=== PATIENT | female | born 1985 | race Caucasian/White ===

== ENCOUNTER 2017-01-17 17:17 | Emergency (ER) | payer SELFPAY ==
[2017-01-17] MEDS ORDERED: IBUPROFEN 600 MG TAB PO STA (17:34)
--- NOTE | 2017-01-17 17:36 | ED ---
Fall HPI - General Stated Complaint: right hand injury Time Seen by Provider: 01/17/17 17:32 Source: patient, RN notes reviewed Limitations: no limitations - History of Present Illness Initial Comments: This a 31-year-old female presents emergency Department chief complaint right hand injury. Patient states she tripped and fell. Patient has multiple abrasions to bilateral hands, arms. Patient is right-hand dominant. Patient complains of primarily right hand pain. She states she has some abrasions to her left hand but has no sniffing pain. Denies any head injury, LOC. Patient states she has no other muscle skeletal injury other than her right hand. She states that her fingers 2 through 5 bent back. She has severe pain to her right hand. Patient denies any wrist pain. - Related Data Home Medications Medication Instructions Recorded Confirmed Morphine Sulfate [Elayne] 30 mg PO BID 10/27/15 10/27/15 traMADol HCl [Ultram] 50 mg PO BID 10/27/15 10/27/15 Previous Rx's Medication Instructions Recorded HYDROcodone/APAP 5-325MG [[place] 1 each PO Q6HR PRN #20 tab 10/27/15 5-325] HYDROcodone/APAP 10-325MG [[place] 1 tab PO Q6H PRN #15 tab 01/17/17 10-325] Allergies Allergy/AdvReac Type Severity Reaction Status Date / Time No Known Allergies Allergy Verified 01/17/17 17:39 Review of Systems ROS Statement: Those systems with pertinent positive or pertinent negative responses have been documented in the HPI. ROS Other: All systems not noted in ROS Statement are negative. Past Medical History Past Medical History: Fibromyalgia History of Any Multi-Drug Resistant Organisms: None Reported Past Surgical History: Orthopedic Surgery, Tubal Ligation Additional Past Surgical History / Comment(s): rt rotator cuff Past Psychological History: No Psychological Hx Reported Smoking Status: Current every day smoker Past Alcohol Use History: None Reported Past Drug Use History: None Reported General Exam General appearance: alert, in no apparent distress Head exam: Present: atraumatic, normocephalic, normal inspection Neck exam: Present: normal inspection, full ROM. Absent: tenderness, meningismus, lymphadenopathy Respiratory exam: Present: normal lung sounds bilaterally. Absent: respiratory distress, wheezes, rales, rhonchi, stridor Cardiovascular Exam: Present: regular rate, normal rhythm, normal heart sounds. Absent: systolic murmur, diastolic murmur, rubs, gallop, clicks Extremities exam: Present: other (Bilateral hands, arms or multiple abrasions no active bleeding. Patient has tenderness with palpation across 2 through 5 metacarpal, MCP region there is moderate swelling patient has no wrist tenderness no forearm tenderness. Remaining extremity exam within normal limits.) Back exam: Present: full ROM. Absent: tenderness Neurological exam: Present: alert, oriented X3, CN II-XII intact Skin exam: Present: warm, dry Course Vital Signs 01/17/17 17:46 Temperature 97.9 F Pulse Rate 83 Respiratory 18 Rate Blood Pressure 125/74 O2 Sat by Pulse 100 Oximetry Procedures - Orthopedic Splinting/Casting Injury #1 Side: right Upper Extremity Injury Location: hand, finger Upper Extremity Immobilizer: ulnar gutter (Neurovascular intact before and after procedure) Medical Decision Making - Medical Decision Making 31-year-old female presents to emergency room for fall, head injury. Patient has proximal fifth digit fracture. Patient does have some tenderness over the MCPs joint. Patient was placed in ulnar gutter splint. Patient discharged with pain medication. Patient will follow-up with on-call orthopedics Dr. Kong. Return parameters were discussed. Disposition Clinical Impression: Hand injury, Finger fracture, right, Multiple abrasions Disposition: HOME SELF-CARE Condition: Stable Instructions: Finger Fracture (ED) Additional Instructions: Please return to the Emergency Department if symptoms worsen or any other concerns. Prescriptions: HYDROcodone/APAP 10-325MG [[place] 10-325] 1 tab PO Q6H PRN #15 tab PRN Reason: pain Referrals: Maco Dhillon DO [Primary Care Provider] - 1-2 days Patrick Kong DO [Doctor of Osteopathic Medicine] - 1-2 days Time of Disposition: 17:56
[2017-01-17 17:50] VITALS: BP 125/74; PULSE 83; RESP 18; TEMP 97.9
--- NOTE | 2017-01-17 17:58 | XR ---
EXAMINATION TYPE: XR hand complete RT DATE OF EXAM: 01/17/2017 5:48 PM COMPARISON: NONE HISTORY: Fifth digit pain TECHNIQUE: 4 views FINDINGS: There is a transverse fracture across the base of the proximal phalanx of the little finger of the right hand. There is no dislocation. Joint spaces are normal. IMPRESSION: Acute fracture of the little finger as above. No significant displacement.
== END 2017-01-17 18:32 | disposition home or self-care (01) ==
LOC: EC 17:17
DX: S62.616A Displaced fracture of proximal phalanx of right little finger, initial encounter for closed fracture (principal); S60.512A Abrasion of left hand, initial encounter; S60.511A Abrasion of right hand, initial encounter; S40.812A Abrasion of left upper arm, initial encounter; S40.811A Abrasion of right upper arm, initial encounter; F17.200 Nicotine dependence, unspecified, uncomplicated; M79.7 Fibromyalgia; Z79.891 Long term (current) use of opiate analgesic; Z79.899 Other long term (current) drug therapy; W01.0XXA Fall on same level from slipping, tripping and stumbling without subsequent striking against object, initial encounter
CPT/HCPCS: 29125; 99283

== ENCOUNTER 2017-05-24 19:35 | Emergency (ER) | payer OTHER ==
[2017-05-24] MEDS ORDERED: DICYCLOMINE 10 MG/ML 2 ML AMP IM STA (21:23)
[2017-05-24] MEDS ORDERED: SODIUM CHLORIDE 0.9% 1,000 ML IV ONE (21:23)
[2017-05-24] MEDS ORDERED: ONDANSETRON 4 MG/2 ML VIAL IVP STA (21:23)
--- NOTE | 2017-05-24 21:38 | ED ---
General Adult HPI - General Chief complaint: Abdominal Pain Stated complaint: Vomiting Time Seen by Provider: 05/24/17 21:05 Source: patient Mode of arrival: ambulatory Limitations: no limitations - History of Present Illness Initial comments: This is a 31-year-old female with a history of headaches please see a neurologist, Dr. Haywood, who presents emergency department for multiple complaints. She states that for the last 2 weeks she's been having bitemporal headaches that she states the been constant. She says associated nausea, vomiting, and diarrhea. She is also had left-sided abdominal cramping that comes and goes. Nothing seems to make anything better or worse. She tried over -the-counter remedies without any relief. She has not followed up with her primary doctor. She no longer sees Dr. Haywood however states that when she saw him previously she was told that she had spots on her brain. This was of unclear etiology at the time however she has not seen anybody for them in a long time. She presented emergency Department after going to [facility] for further evaluation. She denies any vision changes, focal neurologic deficits, or any other complaints. - Related Data Home Medications Medication Instructions Recorded Confirmed Acetaminophen [Tylenol Arthritis] 1,950 mg PO DAILY PRN 05/24/17 05/24/17 Previous Rx's Medication Instructions Recorded Butalb/APAP/Caff 50-325-40Mg 1 tab PO Q4H PRN #20 tablet 05/24/17 [Fioricet 50-325-40] Ondansetron Odt [Zofran Odt] 4 mg PO Q8HR PRN #15 tab 05/24/17 Allergies Allergy/AdvReac Type Severity Reaction Status Date / Time No Known Allergies Allergy Verified 05/24/17 21:49 Review of Systems ROS Statement: Those systems with pertinent positive or pertinent negative responses have been documented in the HPI. ROS Other: All systems not noted in ROS Statement are negative. Past Medical History Past Medical History: Fibromyalgia History of Any Multi-Drug Resistant Organisms: None Reported Past Surgical History: Orthopedic Surgery, Tubal Ligation Additional Past Surgical History / Comment(s): rt rotator cuff Past Psychological History: No Psychological Hx Reported Smoking Status: Current every day smoker Past Alcohol Use History: Occasional Past Drug Use History: None Reported General Exam - General Exam Comments Initial Comments: Constitutional: Awake alert Appears comfortable Head: Normocephalic atraumatic Eyes: no conjunctival injection No scleral icterus EOMI, pupils are 4 mm reactive bilaterally Neck: No JVD Supple, no midline tenderness, no meningismus Heart: Regular rate rhythm normal S1-S2 no murmurs Lungs: Clear to auscultation bilaterally No wheezing No rales Abdomen: Soft nondistended nontender Extremities: Non edematous DP pulses intact Radial pulses intact Neuro: A&Ox3 cranial nerves II through XII are grossly intact, 5 out of 5 strength in upper and lower [place] bilaterally, sensation intact to light touch in all extremities, no ataxia with finger to nose and heel to aguiar testing No focal neurologic deficits Psych: Appropriate mood and affect Limitations: no limitations Course Vital Signs 05/24/17 05/24/17 05/24/17 19:53 22:04 23:41 Temperature 98.6 F 98.6 F Pulse Rate 82 70 71 Respiratory 18 18 17 Rate Blood Pressure 109/64 115/68 96/59 O2 Sat by Pulse 100 98 100 Oximetry 05/25/17 00:14 Temperature 97.9 F Pulse Rate 72 Respiratory 18 Rate Blood Pressure 112/58 O2 Sat by Pulse 97 Oximetry Medical Decision Making - Medical Decision Making This is a 31-year-old female presents emergency room for 2 weeks worth of headache. Labwork was reviewed and unremarkable. She does not appear to be severely dehydrated. No obvious evidence for infection. CT did show a low- lying cerebellar tonsils of unclear etiology or significance. The patient was more comfortable after medications in the emergency department. At this time I feel she needs to follow-up with her primary doctor possibly neurology. She can return if she has worsening or changing symptoms or questions were answered. - Lab Data Result diagrams: 05/24/17 22:00 05/24/17 22:00 Lab Results 05/24/17 05/24/17 05/24/17 Range/Units 22:00 22:00 22:00 WBC 9.5 (3.8-10.6) k/uL RBC 4.55 (3.80-5.40) m/uL Hgb 13.4 (11.4-16.0) gm/dL Hct 41.6 (34.0-46.0) % MCV 91.5 (80.0-100.0) fL MCH 29.4 (25.0-35.0) pg MCHC 32.1 (31.0-37.0) g/dL RDW 12.8 (11.5-15.5) % Plt Count 304 (150-450) k/uL Neutrophils % 52 % Lymphocytes % 37 % Monocytes % 4 % Eosinophils % 4 % Basophils % 1 % Neutrophils # 5.0 (1.3-7.7) k/uL Lymphocytes # 3.6 (1.0-4.8) k/uL Monocytes # 0.4 (0-1.0) k/uL Eosinophils # 0.4 (0-0.7) k/uL Basophils # 0.1 (0-0.2) k/uL Sodium 139 (137-145) mmol/L Potassium 4.1 (3.5-5.1) mmol/L Chloride 107 (98-107) mmol/L Carbon Dioxide 24 (22-30) mmol/L Anion Gap 8 mmol/L BUN 5 L (7-17) mg/dL Creatinine 0.59 (0.52-1.04) mg/dL Est GFR (MDRD) Af Amer >60 (>60 ml/min/1.73 sqM) Est GFR (MDRD) Non-Af >60 (>60 ml/min/1.73 sqM) Glucose 81 (74-99) mg/dL Calcium 9.1 (8.4-10.2) mg/dL Total Bilirubin 0.1 L (0.2-1.3) mg/dL AST 17 (14-36) U/L ALT 25 (9-52) U/L Alkaline Phosphatase 82 (38-126) U/L Total Protein 6.6 (6.3-8.2) g/dL Albumin 4.1 (3.5-5.0) g/dL Amylase <30 L (30-110) U/L Lipase 30 (23-300) U/L Urine Color Light Yellow Urine Appearance Clear (Clear) Urine pH 5.5 (5.0-8.0) Ur Specific [place] 1.007 (1.001-1.035) Urine Protein Negative (Negative) Urine Glucose (UA) Negative (Negative) Urine Ketones Negative (Negative) Urine Blood Small H (Negative) Urine Nitrite Negative (Negative) Urine Bilirubin Negative (Negative) Urine Urobilinogen <2.0 (<2.0) mg/dL Ur Leukocyte Esterase Negative (Negative) Urine RBC 2 (0-5) /hpf Urine WBC 1 (0-5) /hpf Ur Squamous Epith Cells <1 (0-4) /hpf Urine Bacteria Rare H (None) /hpf Urine HCG, Qual (Not Detectd) Urine Opiates Screen Detected H (NotDetected) Ur Oxycodone Screen Detected H (NotDetected) Urine Methadone Screen Not Detected (NotDetected) Ur Propoxyphene Screen Not Detected (NotDetected) Ur Barbiturates Screen Not Detected (NotDetected) U Tricyclic Antidepress Not Detected (NotDetected) Ur Phencyclidine Scrn Not Detected (NotDetected) Ur Amphetamines Screen Not Detected (NotDetected) U Methamphetamines Scrn Not Detected (NotDetected) U Benzodiazepines Scrn Not Detected (NotDetected) Urine Cocaine Screen Not Detected (NotDetected) U Marijuana (THC) Screen Not Detected (NotDetected) 05/24/17 Range/Units 22:00 WBC (3.8-10.6) k/uL RBC (3.80-5.40) m/uL Hgb (11.4-16.0) gm/dL Hct (34.0-46.0) % MCV (80.0-100.0) fL MCH (25.0-35.0) pg MCHC (31.0-37.0) g/dL RDW (11.5-15.5) % Plt Count (150-450) k/uL Neutrophils % % Lymphocytes % % Monocytes % % Eosinophils % % Basophils % % Neutrophils # (1.3-7.7) k/uL Lymphocytes # (1.0-4.8) k/uL Monocytes # (0-1.0) k/uL Eosinophils # (0-0.7) k/uL Basophils # (0-0.2) k/uL Sodium (137-145) mmol/L Potassium (3.5-5.1) mmol/L Chloride (98-107) mmol/L Carbon Dioxide (22-30) mmol/L Anion Gap mmol/L BUN (7-17) mg/dL Creatinine (0.52-1.04) mg/dL Est GFR (MDRD) Af Amer (>60 ml/min/1.73 sqM) Est GFR (MDRD) Non-Af (>60 ml/min/1.73 sqM) Glucose (74-99) mg/dL Calcium (8.4-10.2) mg/dL Total Bilirubin (0.2-1.3) mg/dL AST (14-36) U/L ALT (9-52) U/L Alkaline Phosphatase (38-126) U/L Total Protein (6.3-8.2) g/dL Albumin (3.5-5.0) g/dL Amylase (30-110) U/L Lipase (23-300) U/L Urine Color Urine Appearance (Clear) Urine pH (5.0-8.0) Ur Specific [place] (1.001-1.035) Urine Protein (Negative) Urine Glucose (UA) (Negative) Urine Ketones (Negative) Urine Blood (Negative) Urine Nitrite (Negative) Urine Bilirubin (Negative) Urine Urobilinogen (<2.0) mg/dL Ur Leukocyte Esterase (Negative) Urine RBC (0-5) /hpf Urine WBC (0-5) /hpf Ur Squamous Epith Cells (0-4) /hpf Urine Bacteria (None) /hpf Urine HCG, Qual Not Detected (Not Detectd) Urine Opiates Screen (NotDetected) Ur Oxycodone Screen (NotDetected) Urine Methadone Screen (NotDetected) Ur Propoxyphene Screen (NotDetected) Ur Barbiturates Screen (NotDetected) U Tricyclic Antidepress (NotDetected) Ur Phencyclidine Scrn (NotDetected) Ur Amphetamines Screen (NotDetected) U Methamphetamines Scrn (NotDetected) U Benzodiazepines Scrn (NotDetected) Urine Cocaine Screen (NotDetected) U Marijuana (THC) Screen (NotDetected) Disposition Clinical Impression: Headache Disposition: HOME SELF-CARE Condition: Stable Instructions: Acute Headache (ED) Prescriptions: Butalb/APAP/Caff 50-325-40Mg [Fioricet 50-325-40] 1 tab PO Q4H PRN #20 tablet PRN Reason: Headache Ondansetron Odt [Zofran Odt] 4 mg PO Q8HR PRN #15 tab PRN Reason: Nausea Referrals: Maco Dhillon DO [Primary Care Provider] - 1-2 days
[2017-05-24 22:11] LABS: Basophils # (A) 0.1 k/uL (0-0.2); Basophils % (A) 1 %; CH 30.5; CHCM 33.5; Eosinophils # (A) 0.4 k/uL (0-0.7); Eosinophils % (A) 4 %; HCT 41.6 % (34.0-46.0); HDW 2.35; HGB 13.4 gm/dL (11.4-16.0); Luc # (Auto) 0.18; Luc % (Auto) 2; Lymphocytes # (A) 3.6 k/uL (1.0-4.8); Lymphocytes % (A) 37 %; MCH 29.4 pg (25.0-35.0); MCHC 32.1 g/dL (31.0-37.0); MCV 91.5 fL (80.0-100.0); Mean Platelet Volume 8.1; Monocytes # (A) 0.4 k/uL (0-1.0); Monocytes % (A) 4 %; Neutrophils % (A) 52 %; RBC 4.55 m/uL (3.80-5.40); RDW 12.8 % (11.5-15.5); WBC 9.5 k/uL (3.8-10.6); WBC (Perox) 10.11
[2017-05-24 22:16] LABS: Appearance,Urine Clear (Clear); Bacteria,Urine Rare /hpf; Bilirubin,Urine Negative (Negative); Glucose,Urine (UA) Negative (Negative); Ketones,Urine Negative (Negative); Leukocyte Esterase,Urine Negative (Negative); Nitrite,Urine Negative (Negative); PH, Urine 5.5 (5.0-8.0); Particle Count 500; Protein,Urine Negative (Negative); RBC,Urine 2 /hpf (0-5); Specific Gravity,Urine 1.007 (1.001-1.035); Squamous Epithelial Cell,Urine <1 /hpf (0-4); UA Billing (MACRO vs. MICRO) MICRO; Urobilinogen,Urine <2.0 mg/dL (<2.0); WBC,Urine 1 /hpf (0-5)
[2017-05-24 22:20] LABS: AST 17 U/L (14-36); Alkaline Phosphatase 82 U/L (38-126); Amylase <30 U/L (30-110); Anion Gap 8 mmol/L; Blood Urea Nitrogen 5 mg/dL (7-17); Calcium 9.1 mg/dL (8.4-10.2); Carbon Dioxide 24 mmol/L (22-30); Chloride 107 mmol/L (98-107); Glucose 81 mg/dL (74-99); Non-African American GFR(MDRD) >60 (>60 ml/min/1.73 sqM); Potassium 4.1 mmol/L (3.5-5.1); Sodium 139 mmol/L (137-145); Total Bilirubin 0.1 mg/dL (0.2-1.3); Total Protein 6.6 g/dL (6.3-8.2)
[2017-05-24 22:26] LABS: ALT 25 U/L (9-52)
[2017-05-24] MEDS ORDERED: KETOROLAC 30 MG/ML 1 ML VIAL IVP STA (23:05)
--- NOTE | 2017-05-24 23:52 | CT ---
EXAM: CT Head Without Intravenous Contrast CLINICAL HISTORY: Headache x2 weeks TECHNIQUE: Axial computed tomography images of the head/brain without intravenous contrast. CTDIvol: 60.3 mGy DLP: 955 mGy-cm. This CT exam was performed using one or more of the following dose reduction techniques: automated exposure control, adjustment of the mA and/or kV according to patient size, and/or use of iterative reconstruction technique. COMPARISON: No relevant prior studies available. FINDINGS: The posterior fossa is not well evaluated. No definite evidence for acute intracranial hemorrhage or hydrocephalus. The cerebellar tonsils are low- lying. No evidence for a depressed calvarial fracture. The visualized portions of the bilateral mastoid air cells are clear. The visualized portions of the paranasal sinuses are essentially clear without air fluid levels. IMPRESSION: 1. No definite evidence for acute intracranial hemorrhage or hydrocephalus. If symptoms persist or worsen, MRI of the brain is suggested. 2. The cerebellar tonsils are low-lying which may also be better evaluated by dedicated MRI brain..
[2017-05-25 00:15] VITALS: BP 112/58; PULSE 72; RESP 18; TEMP 97.9
== END 2017-05-25 00:13 | disposition home or self-care (01) ==
LOC: EC 19:35
DX: R51 Headache (principal); R11.2 Nausea with vomiting, unspecified; R19.7 Diarrhea, unspecified; R10.9 Unspecified abdominal pain; R93.0 Abnormal findings on diagnostic imaging of skull and head, not elsewhere classified; F17.200 Nicotine dependence, unspecified, uncomplicated
CPT/HCPCS: 99284; 96374; 96375; 96372; 36415; 80053; 82150; 83690; 85025; 81001; 81025; 80306; 70450; J0500; J2405; J1885

== ENCOUNTER → 2017-05-29 | Outpatient (CLI) | payer OTHER ==
--- NOTE | 2017-05-29 23:23 | MR ---
EXAMINATION TYPE: MR brain wo/w con DATE OF EXAM: 05/29/2017 COMPARISON: 04/02/2012 HISTORY: Headaches, Dizzy, Multihance 20, Previous MRI on PACS TECHNIQUE: Multiplanar, multisequence images of the brain and brainstem is performed without and with IV contras t, utilizing 20 mL intravenous MultiHance . FINDINGS: Ventricles and sulci appear normal. There is no mass effect nor midline shift. There is no sign of intracranial hemorrhage. Brainstem is intact. There is no evidence of an infarct. There is no pathologic enhancement. Corpus callosum appears normal. Sella turcica is normal. Pituitary stalk is in the midline. Optic chiasm appears normal. There is no evidence of posterior fossa mass. IMPRESSION: Normal MR scan of the brain. No change compared to old exam.
== END | disposition home or self-care (01) ==
LOC: RADMRIMAIN 18:52
PROVIDERS: ATTEND Internal Medicine
DX: R51 Headache (principal); R42 Dizziness and giddiness
CPT/HCPCS: 70553; A9577

== ENCOUNTER → 2017-06-07 | Outpatient (CLI) | payer OTHER ==
--- NOTE | 2017-06-07 07:48 | US ---
EXAMINATION TYPE: US abdomen complete DATE OF EXAM: 06/07/2017 COMPARISON: NONE CLINICAL HISTORY: Left Upper Abdomen Pain R10.12. Pt states left side ABD pain EXAM MEASUREMENTS: Liver Length: 16.3 cm Gallbladder Wall: 0.2 cm CBD: 0.3 cm Spleen: 12.0 cm Right Kidney: 11.5 x 3.9 x 5.2 cm Left Kidney: 11.8 x 5.0 x 4.0 cm Pancreas: wnl, tail obscured by overlying bowel gas Liver: wnl Gallbladder: wnl Evidence for sonographic Bejarano's sign: No CBD: wnl Spleen: wnl Right Kidney: wnl Left Kidney: wnl Upper IVC: wnl Abd Aorta: wnl The liver is homogenous. The intrahepatic portion of the IVC and proximal abdominal aorta are within normal limits. There is no evidence of cholelithiasis. Common bile duct is unremarkable. The visu alized portions of the pancreas are homogenous. The spleen is unremarkable. Kidneys are symmetric a nd free of hydronephrosis. No renal lesions are seen. IMPRESSION: 1. No sonographic evidence for cholelithiasis or cholecystitis. 2. Unremarkable abdominal ultrasound.
== END | disposition home or self-care (01) ==
LOC: RADUSWWP 07:03
PROVIDERS: ATTEND Internal Medicine
DX: R10.12 Left upper quadrant pain (principal)
CPT/HCPCS: 76700

== ENCOUNTER 2018-04-06 20:10 | Observation (INO) | payer OTHER ==
[2018-04-06] MEDS ORDERED: SODIUM CHLORIDE 0.9% 1,000 ML IV STA (20:22)
[2018-04-06] MEDS ORDERED: NALOXONE 0.4 MG/ML 1 ML VIAL IV STA (20:22)
--- NOTE | 2018-04-06 20:23 | ED ---
General Adult HPI - General Chief complaint: Overdose Stated complaint: Overdose Time Seen by Provider: 04/06/18 20:21 Source: patient, family, RN notes reviewed, old records reviewed Mode of arrival: wheelchair Limitations: no limitations - History of Present Illness Initial comments: This is a 32-year-old female the ER for evaluation regards to overdose. Patient took overdose as suicide attempt today. Has having difficulty with family and boyfriend. Patient took allegedly 18 Xanax plus unknown medication. She is responsive to pain before strain, history obtained from family - Related Data Home Medications Medication Instructions Recorded Confirmed ARIPiprazole [Abilify] 10 mg PO HS 04/06/18 04/06/18 DULoxetine HCL [Cymbalta] 60 mg PO DAILY 04/06/18 04/06/18 QUEtiapine FUMARATE [SEROquel] 300 mg PO HS 04/06/18 04/06/18 Allergies Allergy/AdvReac Type Severity Reaction Status Date / Time No Known Allergies Allergy Verified 04/06/18 21:11 Review of Systems ROS Statement: Those systems with pertinent positive or pertinent negative responses have been documented in the HPI. ROS Other: All systems not noted in ROS Statement are negative. Past Medical History Past Medical History: Fibromyalgia History of Any Multi-Drug Resistant Organisms: None Reported Past Surgical History: Orthopedic Surgery, Tubal Ligation Additional Past Surgical History / Comment(s): rt rotator cuff Past Psychological History: Depression Smoking Status: Current every day smoker Past Alcohol Use History: Occasional Past Drug Use History: None Reported General Exam Limitations: altered mental status General appearance: alert, in no apparent distress, lethargic Head exam: Present: atraumatic, normocephalic, normal inspection Eye exam: Present: normal appearance, PERRL, EOMI. Absent: scleral icterus, conjunctival injection, periorbital swelling ENT exam: Present: normal exam, mucous membranes moist Neck exam: Present: normal inspection. Absent: tenderness, meningismus, lymphadenopathy Respiratory exam: Present: normal lung sounds bilaterally. Absent: respiratory distress, wheezes, rales, rhonchi, stridor Cardiovascular Exam: Present: regular rate, normal rhythm, normal heart sounds. Absent: systolic murmur, diastolic murmur, rubs, gallop, clicks GI/Abdominal exam: Present: soft, normal bowel sounds. Absent: distended, tenderness, guarding, rebound, rigid Extremities exam: Present: normal inspection, full ROM, normal capillary refill. Absent: tenderness, pedal edema, joint swelling, calf tenderness Back exam: Present: normal inspection Neurological exam: Present: alert, oriented X3, CN II-XII intact Psychiatric exam: Present: normal affect, normal mood Skin exam: Present: warm, dry, intact, normal color. Absent: rash Course Vital Signs 04/06/18 04/06/18 04/06/18 20:11 20:47 20:51 Temperature 98.2 F Pulse Rate 101 H 82 Respiratory 20 16 16 Rate Blood Pressure 95/67 102/60 O2 Sat by Pulse 100 97 Oximetry 04/06/18 21:44 Temperature 97.7 F Pulse Rate 79 Respiratory 18 Rate Blood Pressure 111/62 O2 Sat by Pulse 96 Oximetry - Reevaluation(s) Reevaluation #1: 04/06/18 21:47 Patient has no response to Narcan Reevaluation #2: 04/06/18 21:47 Patient has no deterioration clinical state, remains responsive to pain and breathing remained stable EKG Findings - EKG Comments: EKG Findings:: EKG shows sinus rhythm rate of 77, NV 160, QRS 76, QTc 440 Medical Decision Making - Medical Decision Making 32 female the ER with overdose and suicide attempt. Patient is to be admitted for psychiatric evaluation and treatment, monitoring of cardiopulmonary status, placed on pulse ox - Lab Data Result diagrams: 04/06/18 20:40 04/06/18 20:40 Lab Results 04/06/18 04/06/18 04/06/18 Range/Units 20:40 20:40 20:40 WBC 10.9 H (3.8-10.6) k/uL RBC 4.72 (3.80-5.40) m/uL Hgb 14.0 (11.4-16.0) gm/dL Hct 41.6 (34.0-46.0) % MCV 88.1 (80.0-100.0) fL MCH 29.6 (25.0-35.0) pg MCHC 33.6 (31.0-37.0) g/dL RDW 12.2 (11.5-15.5) % Plt Count 271 (150-450) k/uL Neutrophils % 62 % Lymphocytes % 30 % Monocytes % 4 % Eosinophils % 2 % Basophils % 1 % Neutrophils # 6.8 (1.3-7.7) k/uL Lymphocytes # 3.3 (1.0-4.8) k/uL Monocytes # 0.4 (0-1.0) k/uL Eosinophils # 0.2 (0-0.7) k/uL Basophils # 0.1 (0-0.2) k/uL PT (9.0-12.0) sec INR (<1.2) Sodium 138 (137-145) mmol/L Potassium 3.7 (3.5-5.1) mmol/L Chloride 104 (98-107) mmol/L Carbon Dioxide 25 (22-30) mmol/L Anion Gap 9 mmol/L BUN 8 (7-17) mg/dL Creatinine 0.71 (0.52-1.04) mg/dL Est GFR (CKD-EPI)AfAm >90 (>60 ml/min/1.73 sqM) Est GFR (CKD-EPI)NonAf >90 (>60 ml/min/1.73 sqM) Glucose 88 (74-99) mg/dL Calcium 9.1 (8.4-10.2) mg/dL Total Bilirubin 0.3 (0.2-1.3) mg/dL AST 15 (14-36) U/L ALT 29 (9-52) U/L Alkaline Phosphatase 106 (38-126) U/L Total Creatine Kinase 45 (30-135) U/L CK-MB (CK-2) <0.2 (0.0-2.4) ng/mL CK-MB (CK-2) Rel Index Troponin I <0.012 (0.000-0.034) ng/mL Total Protein 6.2 L (6.3-8.2) g/dL Albumin 3.9 (3.5-5.0) g/dL Lipase 24 (23-300) U/L Salicylates <1.0 mg/dL Acetaminophen <10.0 ug/mL Serum Alcohol <10 mg/dL 04/06/18 Range/Units 20:40 WBC (3.8-10.6) k/uL RBC (3.80-5.40) m/uL Hgb (11.4-16.0) gm/dL Hct (34.0-46.0) % MCV (80.0-100.0) fL MCH (25.0-35.0) pg MCHC (31.0-37.0) g/dL RDW (11.5-15.5) % Plt Count (150-450) k/uL Neutrophils % % Lymphocytes % % Monocytes % % Eosinophils % % Basophils % % Neutrophils # (1.3-7.7) k/uL Lymphocytes # (1.0-4.8) k/uL Monocytes # (0-1.0) k/uL Eosinophils # (0-0.7) k/uL Basophils # (0-0.2) k/uL PT 10.6 (9.0-12.0) sec INR 1.1 (<1.2) Sodium (137-145) mmol/L Potassium (3.5-5.1) mmol/L Chloride (98-107) mmol/L Carbon Dioxide (22-30) mmol/L Anion Gap mmol/L BUN (7-17) mg/dL Creatinine (0.52-1.04) mg/dL Est GFR (CKD-EPI)AfAm (>60 ml/min/1.73 sqM) Est GFR (CKD-EPI)NonAf (>60 ml/min/1.73 sqM) Glucose (74-99) mg/dL Calcium (8.4-10.2) mg/dL Total Bilirubin (0.2-1.3) mg/dL AST (14-36) U/L ALT (9-52) U/L Alkaline Phosphatase (38-126) U/L Total Creatine Kinase (30-135) U/L CK-MB (CK-2) (0.0-2.4) ng/mL CK-MB (CK-2) Rel Index Troponin I (0.000-0.034) ng/mL Total Protein (6.3-8.2) g/dL Albumin (3.5-5.0) g/dL Lipase (23-300) U/L Salicylates mg/dL Acetaminophen ug/mL Serum Alcohol mg/dL Disposition Clinical Impression: Drug overdose, Suicide attempt Disposition: ADMITTED IP TO THIS HOSP Condition: Fair Is patient prescribed a controlled substance at d/c from ED?: No
[2018-04-06 20:53] LABS: Basophils # (A) 0.1 k/uL (0-0.2); Basophils % (A) 1 %; Eosinophils # (A) 0.2 k/uL (0-0.7); Eosinophils % (A) 2 %; HCT 41.6 % (34.0-46.0); Lymphocytes # (A) 3.3 k/uL (1.0-4.8); Lymphocytes % (A) 30 %; MCH 29.6 pg (25.0-35.0); MCHC 33.6 g/dL (31.0-37.0); MCV 88.1 fL (80.0-100.0); Mean Platelet Volume 7.5; Monocytes # (A) 0.4 k/uL (0-1.0); Monocytes % (A) 4 %; Neutrophils # (A) 6.8 k/uL (1.3-7.7); Neutrophils % (A) 62 %; Platelet Count 271 k/uL (150-450); RBC 4.72 m/uL (3.80-5.40); RDW 12.2 % (11.5-15.5); WBC 10.9 k/uL (3.8-10.6)
[2018-04-06 20:58] LABS: INR 1.1 (<1.2); Prothrombin Time 10.6 sec (9.0-12.0)
[2018-04-06 21:03] LABS: ALT 29 U/L (9-52); AST 15 U/L (14-36); Acetaminophen <10.0 ug/mL; Albumin 3.9 g/dL (3.5-5.0); Alcohol <10 mg/dL; Alkaline Phosphatase 106 U/L (38-126); Anion Gap 9 mmol/L; Blood Urea Nitrogen 8 mg/dL (7-17); Calcium 9.1 mg/dL (8.4-10.2); Carbon Dioxide 25 mmol/L (22-30); Chloride 104 mmol/L (98-107); Glucose 88 mg/dL (74-99); Lipase 24 U/L (23-300); Potassium 3.7 mmol/L (3.5-5.1); Salicylate <1.0 mg/dL; Sodium 138 mmol/L (137-145); Total Bilirubin 0.3 mg/dL (0.2-1.3); Total Protein 6.2 g/dL (6.3-8.2)
[2018-04-06] MEDS ORDERED: SODIUM CHLORIDE 0.9% 1,000 ML IV ONE (21:22)
[2018-04-06 21:23] LABS: Creatine Kinase 45 U/L (30-135)
[2018-04-06 21:36] LABS: Creatine Kinase MB <0.2 ng/mL (0.0-2.4); Troponin I <0.012 ng/mL (0.000-0.034)
[2018-04-07 00:21] VITALS: BMI 27.8
[2018-04-07 05:29] VITALS: RESP 16
[2018-04-07 06:09] LABS: Amphetamine Screen,Urine Detected (NotDetected); Barbiturate Screen,Urine Detected (NotDetected); Benzodiazepines Screen,Urine Detected (NotDetected); Cocaine Screen,Urine Not Detected (NotDetected); Methadone Screen, Urine Not Detected (NotDetected); Opiate Screen,Urine Not Detected (NotDetected); Oxycodone Screen, Urine Not Detected (NotDetected); Phencyclidine Screen,Urine Not Detected (NotDetected); Tricyclic Antidepressant,Urine Not Detected (NotDetected); Urn Cannabinoid Scrn Not Detected (NotDetected)
[2018-04-07 06:11] LABS: Appearance,Urine Turbid (Clear); Bilirubin,Urine Negative (Negative); Blood,Urine Moderate (Negative); Color,Urine Yellow; Glucose,Urine (UA) Negative (Negative); Ketones,Urine Negative (Negative); Leukocyte Esterase,Urine Large (Negative); Mucus,Urine Many /hpf; Nitrite,Urine Negative (Negative); PH, Urine 5.5 (5.0-8.0); Protein,Urine Trace (Negative); RBC,Urine 29 /hpf (0-5); Specific Gravity,Urine 1.019 (1.001-1.035); Squamous Epithelial Cell,Urine 1 /hpf (0-4); WBC,Urine 127 /hpf (0-5)
[2018-04-07] MEDS ORDERED: LEVOFLOXACIN 500 MG TAB PO SCH (12:00)
[2018-04-07] MEDS: NICOTINE 21MG/24HR PATCH TRANSDERM SCH (16:54)
--- NOTE | 2018-04-07 20:03 | HP ---
HISTORY AND PHYSICAL HISTORY AND PHYSICAL AND DISCHARGE SUMMARY: CHIEF COMPLAINT: Overdose. HISTORY OF PRESENT ILLNESS: This 32-year-old woman with a past medical history of fibromyalgia, history of orthopedic surgery, tubal ligation, depression not being followed by any primary physician in the outpatient setting was admitted with overdose. The patient was sedated yesterday. The patient has taken about 18 tablets of Xanax and currently the patient is much more alert. There is no history of fever, rigors. No history of headache loss of consciousness or seizures at this time. Patient is depressed. PAST MEDICAL HISTORY: Fibromyalgia, orthopedic surgery, tubal ligation, depression. MEDICATIONS PRIOR TO ADMISSION: Include: 1. Seroquel 300 mg q.h.s. 2. Cymbalta 60 mg daily. 3. Abilify 10 mg q.h.s. ALLERGIES: None. FAMILY HISTORY: Unable to obtain. SOCIAL HISTORY: History of smoking. No history of alcohol intake. REVIEW OF SYSTEMS: ENT: No diminished hearing, diminished vision. CARDIOVASCULAR: No angina, palpitations. RESPIRATORY: No cough or hemoptysis. GI: No nausea or vomiting. : No dysuria. NERVOUS: No numbness or weakness. ALLERGY/IMMUNOLOGY: No asthma or hay fever. MUSCULOSKELETAL: As mentioned earlier. HEMATOLOGY/ONCOLOGY: No history of anemia. ENDOCRINE: No history of diabetes, hypothyroidism. CONSTITUTIONAL: As mentioned earlier. DERMATOLOGY: Negative. RHEUMATOLOGY: Negative. PSYCHIATRY: As mentioned earlier. PHYSICAL EXAMINATION: Alert and oriented x3. Pulse is 84, blood pressure 96/56, respirations 16, temperature 97.1, pulse ox 98% on room air. HEENT: Conjunctivae normal. Oral mucosa moist. NECK: No jugular venous distention. No carotid bruits. No lymph node enlargement. CARDIOVASCULAR: S1, S2 muffled. RESPIRATORY: Breath sounds diminished in the bases. No rhonchi. No crackles. ABDOMEN: Soft, nontender. No mass palpable. LEGS: No edema. No swelling. NERVOUS SYSTEM: Higher functions as mentioned earlier. Moves all 4 limbs. LYMPHATIC: No lymphadenopathy in neck or axillae. SKIN: No ulcer, rash or bleeding. LABS: WBC 10.9, hemoglobin is 14. CMP noted. UA possible UTI. Drug screen is positive for amphetamine, benzodiazepines and barbiturates. ASSESSMENT: 1. Status post overdose of Xanax. 2. Acute urinary tract infection, present on admission. 3. Depression. 4. History of nicotine dependence. 5. Amphetamines in the urine. 6. Increased WBC. RECOMMENDATION AND DISCUSSION: In this 32-year-old woman who presented with multiple medical issues, at this time I recommend to initiate broad-spectrum IV antibiotics, psychiatric evaluation. The patient could be transferred to psych floor with advice to continue antibiotics to complete a 5 day course. Otherwise, the prognosis is guarded and also recommend followup with a primary physician in the outpatient setting. MMODL / IJN: [id number] /
[2018-04-08 05:16] VITALS: BP 85/54; PULSE 79; TEMP 98.4
[2018-04-08] MEDS: NICOTINE 21MG/24HR PATCH TRANSDERM SCH (08:23)
--- NOTE | 2018-04-08 09:34 | P.CN ---
Psychiatric Consult - . Consult date: 04/08/18 Consult:: IDENTIFYING DATA: The patient is a 32-year-old single female admitted to medicine service for evaluation and treatment of the benzodiazepine overdose. HISTORY OF PRESENT ILLNESS: She presented to the ED on 04/06/2018 following an overdose of what the ED physician estimates approximately 18 tablets of Xanax plus other unknown medications. On presentation to the ED, she was lethargic but alert. She showed no respiratory distress ED. In the ED physician admitted her to the medicine service for monitoring of her cardiopulmonary status. I reviewed the medical record and interviewed the patient. She impulsively took a handful of her her boyfriend's Xanax. She was unsure if there are other medications in her hand when she swallowed the pills. She described conflict with her long-term live-in boyfriend. They are having relationship problems and she recently discovered that he is developing a relationship with another woman. In addition, she complained of financial problems. 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 She complained that her boyfriend "will not help." Her admission UDS was positive for barbiturates, amphetamines, methamphetamine and benzodiazepines suggesting that in addition to the benzodiazepines she may have taken a barbiturate and psychostimulants. She denied that she had contemplated overdosing or had been thinking about suicide. She had been depressed for "a long time" at least since the beginning of this year. She described feeling sad, hopeless, helpless and worthless. She feels guilty about the deterioration of their relationship and her inability to fully support herself and her children. She has difficulty falling and staying asleep. She has of feelings of fatigue and weakness. She is tense and irritable. She has a loss of appetite and heaviness in her abdomen. She has heaviness in her limbs and headache and muscle aches. She feels that her present illness as a punishment. She denied experiencing delusions of guilt. She denied hearing accusatory or did not seriously voices or experiencing threatening visual hallucinations. She denied periods of increased anxiety consistent with panic attacks. She describes social use of alcohol. She stated that she last used cocaine "a couple months ago". She denied experiencing periods of elevated mood or sustained irritability suggestive of judith/hypomania. She denied such psychotic symptoms as auditory or visual hallucinations, ideas reference, thought insertion, thought broadcasting or thought control. PAST PSYCHIATRIC HISTORY: She first received mental health services in December 2017 when she was admitted to a psychiatric facility for suicide attempt by overdose. She stated that the circumstances leading to the overdose were similar to the present. The act was impulsive and response to conflict with boyfriend and financial problems. She was referred to [facility] but complained that she did not receive services other than the initial assessments. Both her assigned therapist and psychiatrist canceled the scheduled appointment. PAST MEDICAL HISTORY: She has a purported history of a diagnosis of fibromyalgia. ALLERGIES: Known drug ALLERGIES. SUBSTANCE USE HISTORY: She described insufflating cocaine for "many years". She last used "couple months ago". She also stated that she used methamphetamine "a couple times". She denied participation in substance abuse treatment program or a 12 step programs. She stopped using cocaine out of concern for her children and financial reasons. She denied that child protective services had become involved because of her drug use. FAMILY PSYCHIATRIC/SUBSTANCE USE HISTORY: Her paternal family has a history of alcohol use problems. SOCIAL HISTORY: She lives with her 2 children and boyfriend of 13 years. 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 The children, ages 8 and 13, are currently with the patient's mother. MENTAL STATUS EXAM: She presented as a casually groomed 32-year-old female wearing a hospital gown. She was sitting comfortably in her hospital bed. She made eye contact and attended to the interview. She had tattoos on her arms but no prominent physical abnormalities. She had a depressed facial expression. She is alert and oriented to person, place and time. She showed psychomotor retardation but no abnormal movements. Her speech was spontaneous with decreased rate and rhythm. She had no articulation difficulties. Her affect was dysphoric with depression, anger, irritability and anxiety She denies current suicidal ideation or wishes. She denied homicidal ideation. She expressed depressive cognitions including hopelessness, helplessness and worthlessness. She did not express ideas reference, paranoid ideation or delusional thoughts. Her thinking was abstract and associations were coherent and logical. She did not demonstrate clang associations, perseverations, neologisms or blocking. She denied hallucinations and did not appear to be responding to internal stimuli. Global impression of intellect is average. IMPRESSIONS: She is a 32-year-old female admitted to the medicine unit following a suicide attempt by overdose of a benzodiazepine. This is her second suicide attempt and both attempts occurred in the context of interpersonal conflict and financial problems. She has symptoms of depression uncomplicated by psychosis. She did not give a history suggestive of periods of expansive mood, euphoria or sustained irritability suggestive of a bipolar illness. She has a history of cocaine use and reported recent abstinence. Her admission UDS was negative for cocaine was positive for barbiturates, amphetamines and methamphetamines. In addition to the benzodiazepine she may have taken a barbiturate and a psychostimulant. She may may also be underreporting the extent of her substance use. She should be treated inpatient basis with a combination of psychopharmacology and multimodal therapy. PSYCHIATRIC DIAGNOSIS: Suicide attempt by overdose of multiple medications. Unspecified depressive disorder, rule out major depressive disorder, cocaine use disorder, rule out actual lytic use disorder, rule out psychostimulant use disorder, rule out methamphetamine use disorder PLAN: Transfer the psychiatric unit. She agreed to a voluntary admission but if she were to change her mind and the medicine unit would need to complete a petition and the initial clinical certificate. Thank you for this consult. 04/08/18 09:03
--- NOTE | 2018-04-08 11:55 | DS ---
DISCHARGE SUMMARY FINAL DIAGNOSES: 1. Status post overdose of Xanax. 2. Acute urinary tract infection present on admission. 3. Depression. 4. History of nicotine dependence. 6. Increased WBC. DISCHARGE DISPOSITION: The patient is being discharged in stable condition with guarded prognosis. The patient transferred to inpatient psych. HISTORY OF PRESENT ILLNESS: This 34-year-old woman with a past medical history of multiple medical problems presented with Xanax overdose. Patient treated symptomatically. Patient improved significantly. Psych saw the patient and recommend the patient be transferred to inpatient psych. On exam, vitals are stable. Cardio system: S1, S2. Abdomen soft. Central nervous system: No focal deficits. RECOMMENDATIONS AND DISCUSSION: I recommend to continue the course of Levaquin for 5 days. The rest of the medications per psych. Follow up with primary physician. MMLIZZYL / IJN: [id number] / PRASANNA
== END 2018-04-08 11:07 ==
LOC: EC 20:10 → 5MS5E 21:25
PROVIDERS: ADMIT Hospitalist; ATTEND Hospitalist
DX: T42.4X2A Poisoning by benzodiazepines, intentional self-harm, initial encounter (principal); N39.0 Urinary tract infection, site not specified; F32.9 Major depressive disorder, single episode, unspecified; M79.7 Fibromyalgia; F17.200 Nicotine dependence, unspecified, uncomplicated; Z79.899 Other long term (current) drug therapy
CPT/HCPCS: 99285 ×2; 96374 ×2; 96361 ×5; 36415; 93005; 80053; 82550; 82553; 83690; 84484; 85025; 85610; 81001; 81025; 80306; 83520 ×3; 80320; G0378 ×3; S4990 ×2; J2310

== ENCOUNTER 2018-04-08 10:39 | Inpatient (IN) | payer MEDICAID ==
[2018-04-08 12:20] VITALS: BMI 27.4
[2018-04-08] MEDS ORDERED: cloNIDine HCL 0.1 MG TAB PO STA (12:44)
[2018-04-08] MEDS ORDERED: MAG HYDROX/AL HYDROX/SIMETH 30 ML CUP PO PRN (13:01)
[2018-04-08] MEDS ORDERED: ACETAMINOPHEN TAB 325 MG TAB PO PRN (13:01)
[2018-04-08] MEDS ORDERED: ZIPRASIDONE 20 MG VIAL IM PRN (13:01)
[2018-04-08] MEDS ORDERED: MAGNESIUM HYDROXIDE 2,400 MG/10 ML CUP PO PRN (13:01)
[2018-04-08] MEDS: LEVOFLOXACIN 500 MG TAB PO SCH (13:53)
[2018-04-08] MEDS: LORazepam 1 MG TAB PO PRN (21:53)
[2018-04-09 07:08] VITALS: PULSE 67
[2018-04-09] MEDS ORDERED: NICOTINE 14MG/24HR PATCH TRANSDERM SCH (09:00)
[2018-04-09] MEDS: LORazepam 1 MG TAB PO PRN ×2 (09:02→18:36)
[2018-04-09] MEDS: NICOTINE POLACRILEX 2 MG GUM BUCCAL PRN ×2 (10:22→15:09)
[2018-04-09] MEDS: VENLAFAXINE HCL ER 37.5 MG CAP PO SCH (10:22)
[2018-04-09] MEDS: LEVOFLOXACIN 500 MG TAB PO SCH (14:23)
--- NOTE | 2018-04-09 15:26 | P.HP ---
Psychiatric H&P - . H&P Date: 04/09/18 History & Physical: IDENTIFYING DATA: The patient is a 32-year-old single female transferred from medicine service where she had been admitted for evaluation and treatment of a medication overdose. HISTORY OF PRESENT ILLNESS: She presented to the emergency room on 04/06/2018 following an overdose of what the emergency room physician estimates to have been approximately 18 tablets of Xanax plus other unknown medications. On presentation to the emergency room, she was lethargic but alert. Urine drug screen was positive for barbiturates, amphetamines, methamphetamines and benzodiazepines. Salicylate level was less than 1, acetaminophen level was less than 10 and her serum alcohol level was less than 10. She showed no respiratory distress. The emergency room physician admitted her to medicine service for monitoring of her cardiopulmonary status. I evaluated her when she was on the medicine unit. She stated she impulsively took a handful of her boyfriend Xanax. During our interview today she alleged she didn't recall taking the medications. She remembers arguing with her boyfriend and then "waking up in the emergency room." We discussed results of urine drug screen. She alleges that she takes a butabarbital headache medication (either Fioricet or Fiorinal) and smokes marijuana but denied recent use of methamphetamine or amphetamines. She described ongoing conflicts with her long-term boyfriend. They have been having relationship problems and she recently discovered that he has developed a relationship with a woman. In addition she complains of financial problems. She works as a grades 1 thru 6 home teacher. She recently lost a job allegedly because she refused to cover a coworker during staff shortage. She alleges that her boyfriend did not provide financial assistance when he was working and is currently unemployed. Her ex-boyfriend is currently moving out of the household. She denied that she had contemplated overdosing or that she had been thinking about suicide. She has been depressed "for a long time" at least since the beginning of this year. She described feeling sad, hopeless, helpless and worthless. She feels guilty about the deterioration of the relationship and her inability to fully support herself and her children. She has difficulty falling and staying asleep. She has feelings of fatigue and weakness. She is tense and irritable. She has lost her appetite and experiences a heaviness in her abdomen. She has heaviness in her limbs, headaches and muscle aches. She feels that her present illness is a punishment. However, she denied experiencing delusions of guilt. She denied hearing and accusatory or denunciatory voices or experiencing threatening visual hallucinations. She denied periods of increased anxiety consistent with panic attacks. She describes social use of alcohol. She stated she last used cocaine "a couple months ago". She denied experiencing periods of elevated mood or sustained irritability suggestive of judith/hypomania. She denied such psychotic symptoms as auditory or visual hallucinations, ideas reference, thought insertion, thought broadcasting or thought control. PAST PSYCHIATRIC HISTORY: She first received mental health services in December 2017 when she was admitted to [facility] for a suicide attempt by overdose. The circumstances leading to the overdose were similar to the present where she was having ongoing conflicts with a boyfriend. She stated that she acted impulsively as a result of conflict with her boyfriend and ongoing financial problems. After discharge from [place] she was referred to [facility] but complained that she is not received services" initial assessment. Both her assigned therapist and psychiatrist canceled the scheduled appointments. PAST MEDICAL HISTORY: She has a history of fibromyalgia and migraine headaches.. ALLERGIES: NO KNOWN DRUG ALLERGIES. SUBSTANCE USE HISTORY: She has used cocaine "for many years"; she last used "a couple months ago". She used methamphetamine "a couple times" but "not recently ". She denied participation in a substance abuse treatment program or a 12 step program. She stopped using cocaine out of concern for her children and financial reasons. She denied that child protective services have been involved because of her drug use.. FAMILY PSYCHIATRIC/SUBSTANCE USE HISTORY: Her paternal family has a history of alcohol use problems.. LEGAL HISTORY: She has a history of moving violations and one charge of disorderly person.. SOCIAL HISTORY: She lives with her 2 children and boyfriend of 13 years. She works part-time as a grades 1 thru 6 home teacher. She has 2 children ages 8 and 13 who are currently under the care of her mother. MENTAL STATUS EXAM: She presented as a casually groomed and dressed female who was pleasant on approach. She made eye contact and attended the interview. She had tattoos on her arms and legs but no prominent physical abnormalities. She had a blunted but bright facial expression. She was alert and oriented to person, place and time. She showed slight psychomotor retardation but no abnormal movements. Her speech was spontaneous with normal rate, rhythm and volume. Her affect was blunted but stable and appropriate. She was anxious about this hospitalization. She denied current suicidal ideation or wishes. She denied homicidal ideation. She denied feeling hopeless, helpless or worthless. She did not express ideas reference, paranoid ideation or delusional thoughts. Her thinking was abstract and associations were coherent and logical. She did not demonstrate clang associations, perseverations, neologisms or blocking. She denied hallucinations and did not appear to be responding to internal stimuli. Global impression of intellect is average. She is aware of her illness and the for mental health treatment.. STRENGTHS: Supportive family, stable housing, engagement with mental health services. WEAKNESSES: Substance use, interpersonal conflict. Allergies Allergy/AdvReac Type Severity Reaction Status Date / Time No Known Allergies Allergy Verified 04/08/18 12:41 Vital Signs Temp 98.7 F 04/09/18 06:40 Pulse 67 04/09/18 06:40 Resp 18 04/09/18 06:40 BP 104/62 04/09/18 06:40 Pulse Ox 98 04/08/18 12:02 Intake & Output 04/08/18 04/09/18 04/09/18 18:59 06:59 18:59 Weight 89.3 kg 89.3 kg Laboratory Last Values Triglycerides 114 mg/dL (<150) 04/09/18 10:37 Cholesterol 122 mg/dL (<200) 04/09/18 10:37 LDL Cholesterol, Calc 66 mg/dL (0-99) 04/09/18 10:37 HDL Cholesterol 33 mg/dL (40-60) L 04/09/18 10:37 TSH 1.380 mIU/L (0.465-4.680) 04/09/18 10:37 04/09/18 14:55 04/09/18 15:23 Assessment and Plan Assessment: She is a 32-year-old female admitted to the psychiatric unit following an overdose of benzodiazepines. This is her second hospitalization as a result of an impulsive overdose of medications. Both this and the prior admission related to ongoing conflict with her long-term live-in boyfriend and financial problems. They are the process of . She is currently denying suicidal thoughts, plans or intent and regrets her impulsive action. S She has a history of stress illnesses including fibromyalgia and migraine headaches. She also has history of use of cocaine and methamphetamine. She should be treated inpatient basis with a combination of multimodal therapy and psychotropic medications. (1) Suicide attempt by multiple drug overdose Current Visit: Yes Status: Acute Code(s): T50.902A - POISONING BY UNSP DRUG/ MEDS/BIOL SUBST, SELF-HARM, INIT SNOMED Code(s): 62622795 (2) Depressive disorder, not elsewhere classified Current Visit: Yes Status: Acute Code(s): F32.9 - MAJOR DEPRESSIVE DISORDER , SINGLE EPISODE, UNSPECIFIED SNOMED Code(s): 18813365 (3) Relationship problem between partners Current Visit: Yes Status: Acute Code(s): Z63.0 - PROBLEMS IN RELATIONSHIP WITH SPOUSE OR PARTNER SNOMED Code(s): 5436022228388 (4) Financial problems Current Visit: Yes Status: Acute Code(s): Z59.8 - OTHER PROBLEMS RELATED TO HOUSING AND ECONOMIC CIRCUMSTANCES SNOMED Code(s): 281033818 Plan: Admit to the psychiatric unit. Suicide precautions. Consult medicine service for initial physical exam and medical history. Continue Seroquel 3 mg at bedtime and begin a trial of Effexor XR 37.5 mg with titration according to clinical response and tolerance. Encourage participation in therapeutic groups and activities. Refer to [facility] for aftercare. Evaluate clinical status response to treatment on a daily basis.
--- NOTE | 2018-04-09 16:44 | CONS ---
CONSULTATION DATE OF SERVICE: 04/09/2018. REASON FOR CONSULTATION: Advice regarding UTI and other medical issues requested by psychiatry. HISTORY OF PRESENT ILLNESS: This 32-year-old woman with a past medical history of multiple medical problems, being followed by Dr. Maco Dhillon in the outpatient setting was admitted with an overdoses of Xanax to the Medical floor. Subsequently patient was transferred to inpatient psych. There is no history of fever, rigors. No history of headache, loss of consciousness or seizures. Patient has skin lesion on the right leg. PAST MEDICAL HISTORY: Of fibromyalgia, history of overdose, depression. MEDICATIONS: Prior to admission home medications are: 1. Seroquel 300 mg p.o. daily. 2. Cymbalta 60 mg daily. 3. Abilify 10 mg q.h.s. ALLERGIES: None. FAMILY HISTORY: Unable to obtain. SOCIAL HISTORY: History of smoking. No history of alcohol intake. REVIEW OF SYSTEMS: ENT: No diminished vision. No diminished hearing. CARDIOVASCULAR: No angina or palpitations. RESPIRATORY: As mentioned earlier. GI: As mentioned earlier. no dysuria. CENTRAL NERVOUS SYSTEM: No numbness, weakness. Allergy/Immunology: No asthma or hayfever. MUSCULOSKELETAL: As mentioned earlier. HEMATOLOGY/ONCOLOGY: No history of anemia. ENDOCRINE: No history of diabetes. CONSTITUTIONAL: As mentioned earlier. DERMATOLOGY: Negative. RHEUMATOLOGY: Negative. PSYCHIATRIC: As mentioned earlier. PHYSICAL EXAMINATION: The patient is alert and oriented times three. VITAL SIGNS: Pulse 67, blood pressure 140/60, respiration 18, temperature 98.7, pulse ox 98% on room air. HEENT: Conjunctivae normal. Oral mucosa moist. NECK is no jugular venous distention. No carotid bruit. No lymph node enlargement. CARDIOVASCULAR: S1, S2 muffled. RESPIRATORY: Breath sounds diminished in the bases. No rhonchi. No crackles. ABDOMEN: Soft, nontender. No mass palpable. LEGS: Right leg anterior part skin lesion which is rather chronic present. NERVOUS SYSTEM: Higher functions as mentioned. Cranial nerves 2 thru 12 grossly intact. Eye movements are full in all directions. No nystagmus. No diplopia. No facial deviation. Moves all 4 limbs. Power is normal. Gait is normal. No sensory abnormalities. No signs of cerebellar dysfunction. SKIN: No ulcer, rash or bleeding. JOINTS: No active deforming arthropathy. LABS: At this time reviewed. ASSESSMENT: 1. Status post Xanax overdose. 2. Acute urinary tract infection present on admission. 3. Depression. 4. History of nicotine dependence. 5. Increased WBC. 6. Skin lesion on the right leg. RECOMMENDATIONS AND DISCUSSION: Recommend to continue current medications, management and symptomatic treatment. I recommend continue the course of Levaquin and complete a course of Levaquin. Habitrol. The patient also noted to have a rather chronic skin lesion on the right leg. I would recommend to continue to follow up with Dermatology or patient's primary physician in the outpatient setting. We will follow the patient closely with you and please call us with any questions. Further recommendations to follow. MMLIZZYL / IJN: [id number] /
[2018-04-09] MEDS ORDERED: QUEtiapine 100 MG TAB PO SCH (21:00)
[2018-04-09 21:27] LABS: Hemoglobin A1C 4.9 % (4.0-6.0)
[2018-04-10 06:30] VITALS: BP 109/61; RESP 14; TEMP 98.8
[2018-04-10] MEDS: VENLAFAXINE HCL ER 37.5 MG CAP PO SCH (08:31)
[2018-04-10] MEDS: NICOTINE POLACRILEX 2 MG GUM BUCCAL PRN ×2 (08:32→11:36)
[2018-04-10] MEDS: LORazepam 1 MG TAB PO PRN (11:36)
[2018-04-10] MEDS: LEVOFLOXACIN 500 MG TAB PO SCH (13:11)
--- NOTE | 2018-04-10 15:47 | P.DS ---
Providers Date of admission: 04/08/18 11:09 Attending physician: Óscar Welch MD Consults: 04/08/18 13:01 Consult Physician Routine Consulting Provider: Alfredito Frank Consult Reason/Comments: H&P, with medical followup Do you want consulting provider notified?: Already Contacted Primary care physician: Stated None - Discharge Diagnosis(es) (1) Suicide attempt by multiple drug overdose Status: Acute Priority: Medium (2) Depressive disorder, not elsewhere classified Status: Acute (3) Relationship problem between partners Status: Acute (4) Financial problems Status: Acute Hospital Course: The patient is a 32-year-old female transferred from medicine service where she was admitted for evaluation and treatment of medication overdose. She presented to the emergency room on 04/06/2018 following an overdose about the emergency room physician estimates to a band approximately 18 tablets of Xanax. Her urine drug screen was positive for benzodiazepines, barbiturates, amphetamines and methamphetamines. When I evaluated her on the medicine service she reported impulsively taking a handful of her boyfriend Xanax. During the inpatient assessment to the psychiatric unit she let she has no memory of taking the overdose. She described ongoing conflicts with her long-term boyfriend. On the day that she took the overdose during an argument where he threatened to leave the relationship. She stated she discovered that he developed a relationship with another woman. In addition she complained of financial problems. She denied that she had contemplated overdosing or that she had been thinking about suicide. She reported feeling depressed since the beginning of this year. She registered with [facility], had her intake assessment but has not met with her therapist or the [facility] psychiatrist. We admitted her to the psychiatric unit under the care of this com writer. We provided a copy a simple biopsychosocial assessment. The farm consultant harness rigger completed initial physical exam and medical history. The harness rigger diagnosed tobacco use disorder, urinary tract infection, and a skin lesion on the right leg. The farm consultant prescribed Levaquin 500 mg by mouth every 24 hours for 3 days. On presentation to the psychiatric unit she denied suicidal ideation, plan or intent. She regrets reaction and expressed concern about the overdose will affect her 2 children. She describes symptoms of depression and chronic difficulties with sleep. We resumed her outpatient dose of Seroquel 300 mg at bedtime prescribed during a prior psychiatric hospitalization. We began a trial of Effexor XL beginning at 37.5 mg. She denied side effects to initial dose of Effexor. The social media marketing specialist will coordinate follow-up appointments with [facility] for next week. At time of discharge she presented as a casually dressed and groomed 32-year- old female was pleasant on approach. She made eye contact and attended to the interview. She had no prominent physical abnormalities. She had a blunted but bright facial expression. She was alert and oriented to person, place and time. She showed no abnormality of psychomotor activity. She has a normal gait and station. Her speech was spontaneous with normal rate , rhythm and volume. Her affect was depressed but reactive. She denied suicidal ideation or wishes. She denied homicidal ideation. She denied such depressive cognitions as hopelessness, helplessness and worthlessness. She denied ideas of reference, paranoid ideation or delusional thoughts. Her thinking was abstract and associations were coherent and logical. She denied hallucinations and did not appear to be responding to internal stimuli. Patient Condition at Discharge: Stable Plan - Discharge Summary Discharge Rx Participant: No New Discharge Prescriptions: New Levofloxacin [Levaquin] 500 mg PO Q24H #2 tab Venlafaxine HCl ER [Effexor XR] 37.5 mg PO DAILY #30 cap.er.24h Continue QUEtiapine FUMARATE [SEROquel] 300 mg PO HS #30 tablet Discontinued DULoxetine HCL [Cymbalta] 60 mg PO DAILY ARIPiprazole [Abilify] 10 mg PO HS Discharge Medication List Levofloxacin [Levaquin] 500 mg PO Q24H #2 tab 04/10/18 [Rx] QUEtiapine FUMARATE [SEROquel] 300 mg PO HS #30 tablet 04/10/18 [Rx] Venlafaxine HCl ER [Effexor XR] 37.5 mg PO DAILY #30 cap.er.24h 04/10/18 [Rx] Follow up Appointment(s)/Referral(s): [facility] [Outside] - 04/16/18 5:00 pm (04-16-18 @ 5:00 with Rhonda Collins 04-30-18 @ 4:[address] Lovett) Maco Dhillon DO [REFERRING] - 1 Week Patient Instructions/Handouts: How to Stop Smoking (DC) Activity/Diet/Wound Care/Special Instructions: Per Dr. Frank, follow up with a career development manager upon discharge in regards to your chronic skin lesion on right lower leg. Keep your follow up appointments as scheduled. Continue medications as prescribed. No alcohol or street drugs. No access to guns or weapons. Crisis line if needed . Discharge Disposition: HOME SELF-CARE
== END 2018-04-10 15:07 | disposition home or self-care (01) | DRG 881 ==
LOC: 3MHU 11:09
PROVIDERS: ADMIT Psychiatry & Neurology Psychiatry; ATTEND Psychiatry & Neurology Psychiatry
DX: F32.9 Major depressive disorder, single episode, unspecified (principal); N39.0 Urinary tract infection, site not specified; L98.8 Other specified disorders of the skin and subcutaneous tissue; M79.7 Fibromyalgia; G43.909 Migraine, unspecified, not intractable, without status migrainosus; Z59.8 Other problems related to housing and economic circumstances; Z91.5 Personal history of self-harm; Z79.899 Other long term (current) drug therapy
CPT/HCPCS: 80061; 83036; 84443